=== PATIENT | female | born 1990 | race Caucasian/White ===

== ENCOUNTER → 2024-08-27 10:21 | Outpatient (BNVA) | payer MEDICAID, SELFPAY | PROVIDERS: PCP Family Medicine; Visit Provider Internal Medicine Rheumatology | DX: R76.8 Other specified abnormal immunological findings in serum (principal); Z79.899 Other long term (current) drug therapy | CPT/HCPCS: 36415; 80076; 82306; 82550; 82565; 85025; 86160; 86162; 86235; 86255; 86376 ==